=== PATIENT | male | born 1955 | race Caucasian/White ===

== ENCOUNTER 2018-04-21 16:45 | Observation (INO) | payer BC, OTHER ==
--- NOTE | 2018-04-21 17:25 | RAD ---
INDICATION: Chest pain. COMPARISON: There are no prior studies available for comparison. TECHNIQUE: A portable view of the chest was obtained. FINDINGS: Cardiac and mediastinal contours appear to be within normal limits. The lungs are underinflated and clear. No pleural effusion is seen. IMPRESSION: NO EVIDENCE FOR ACUTE DISEASE.
[2018-04-21] MEDS ORDERED: Aspirin 81 mg CHEW TAB* 81 MG TAB.CHEW PO ONE (17:30)
[2018-04-21] MEDS ORDERED: Nitroglycerin TAB 0.4 MG* 0.4 MG TAB SL ONE (17:30)
[2018-04-21 17:46] LABS: ABS Basophils 0.1 10^3/ul (0-0.2); ABS Eosinophils 0.1 10^3/ul (0-0.6); ABS Lymphocytes 1.5 10^3/ul (1.0-4.8); ABS Monocytes 0.5 10^3/ul (0-0.8); ABS Neutrophils 3.9 10^3/ul (1.5-7.7); ABS Nucleated RBC 0 10^3/ul; Eosinophil % 2.3 % (0-6); Hematocrit 46 % (42-52); Hemoglobin 16.1 g/dl (14.0-18.0); Lymphocyte % 25.2 % (25-47); Mean Corpuscular HGB Conc 35 g/dl (31-36); Mean Corpuscular Hemoglobin 30 pg (27-31); Mean Corpuscular Volume 86 fL (80-94); Nucleated Red Blood Cells % 0.1; Platelet Count 173 10^3/ul (150-450); Red Blood Count 5.31 10^6/ul (4.00-5.40); Red Cell Distribution Width 13 % (10.5-15); White Blood Count 6.1 10^3/ul (3.5-10.8)
[2018-04-21 18:04] LABS: EGFR Non-African American 67.6 (>60)
[2018-04-21] MEDS ORDERED: Nitroglycerin 2% OINT* 1 GM PAK TOPICAL ONE (19:15)
[2018-04-21] MEDS ORDERED: Ondansetron 40 MG VIAL* 2 MG/ML 20 ML VIAL IV PRN (20:10)
[2018-04-21] MEDS ORDERED: Albuterol 2.5 MG/3 ML NEB.SOL* (0.083%) INH PRN (20:29)
[2018-04-21] MEDS ORDERED: Metoprolol Tartrate TAB* 25 MG ONE (20:30)
[2018-04-21] MEDS: Metoprolol Tartrate TAB* 25 MG PO SCH ×2 (20:34→21:53)
[2018-04-21] MEDS: Heparin VIAL(*) 5000 UNITS/ML VIAL (FIVE THOUSAND) SUBCUT SCH (21:53)
[2018-04-21] MEDS: Nitroglycerin 2% OINT* 1 GM PAK TOPICAL SCH (22:36)
[2018-04-21] MEDS: Acetaminophen TAB* 325 MG PO PRN (22:41)
--- NOTE | 2018-04-21 22:50 | HP ---
CC: Dr. Westbrook * HISTORY AND PHYSICAL: DATE OF ADMISSION: 04/21/18 PRIMARY CARE PROVIDER: Dr. Westbrook. MY ATTENDING PHYSICIAN WHILE IN THE HOSPITAL: Dr. Neva Hardwick * (report dictated by Cj Finch NP) CHIEF COMPLAINT: Chest pain. HISTORY OF PRESENTING ILLNESS: Mr. Camarillo is a 62-year-old male patient; he carries a history of asthma and GERD. He comes into our emergency department today stating that the last couple of weeks he has had intermittent chest tightness, pressure, squeezing. He states it does not happen with exertion but he has noticed that he had been more short of breath with exertion, which he attributed to his allergy. 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 He states that frequency though and the intensity had been increasing over the last couple of days. Today, he had the discomfort and it was in the left chest, pressure going into the shoulder and down the arm and then to his neck. It happened around 10 o'clock and it got worse throughout the day. He says that it did not worse with exertion. He says it just got worse when his customers and his staff and coworkers were you know coming at him from all directions asking him about different things related to his business. He denies any recent fevers or chills. He denies having any associated nausea or diaphoresis with this. He says that he talked to one of his friends who happened to be a physician and they recommended him coming into the ER given his story. By the time he got to the ER, the discomfort had gone away. He is not having again any symptoms now. He says he is feeling better. He is feeling relaxed and he denied any recent travels or trips. No no recent med changes. No calf pain. No recent surgeries. No swelling in the legs. He was concerned though because of the discomfort just was not getting any better. Because of the concerning story, we were asked to evaluate for admission. PAST MEDICAL HISTORY: Significant for: 1. Asthma. 2. GERD. PAST SURGICAL HISTORY: He has had a vasectomy. HOME MEDICATIONS: Include: 1. Omeprazole 40 mg daily. 2. Singulair 10 mg daily. ALLERGIES TO MEDICATIONS: Include PENICILLIN. FAMILY HISTORY: His mother is alive at the age of 90. Father had a history of CHF, he in his 80s. SOCIAL HISTORY: He does not smoke. He does not drink. He again owns his own business. Surrogate decision maker is his . REVIEW OF SYSTEMS: There is no documented fever. He denies having any significant weight change. There was no double vision. He denies having any ear discharge. He denies having any rhinorrhea. There was no sore throat. No thyroid enlargement. He did admit to having chest pain per my HPI. Today, it was associated with shortness of breath, but he denies any orthopnea. No nocturnal dyspnea. There was no abdominal pain, no nausea, no vomiting. No dysuria, no frequency. No seizure, no loss of consciousness. No pruritus and no skin ulcerations. Review of 14 systems completed, all others were negative. PHYSICAL EXAMINATION GENERAL: At this time, Mr. Camarillo is a 62-year-old male patient; he appears to be well nourished and well developed. He is sitting in the ED stretcher. He does not appear to be in any acute distress. VITAL SIGNS: Blood pressure 127/94, pulse 85, respirations 13, O2 sat 98%, temperature 98.3. When he came in, his blood pressure was 155/98. HEENT: Head is atraumatic and normocephalic. Eyes: EOMs are intact. Sclerae are anicteric and not pale. Throat: Oral mucosa appears to be moist. No oropharyngeal erythema. NECK: Supple. LUNGS: Clear to auscultation bilaterally. There were no wheezes, rales, or rhonchi. HEART: Sounds S1, S2. Regular rate and rhythm. No murmurs, rubs, or gallops. ABDOMEN: Soft, it was flat, nontender. Bowel sounds were present. EXTREMITIES: Pulses were 2+ throughout. Able to move all 4 extremities with 5/ 5 strength. No peripheral edema. NEUROLOGICAL: The patient is awake, he is alert, and he is oriented x3. His tongue is midline. Acupressurist were equal. He had no gross focal deficits. SKIN: Intact. LABORATORY DATA/DIAGNOSTIC STUDIES: WBC of 6.1, RBC of 5.31, hemoglobin of 16.1, hematocrit of 46, and a platelet count of 173. Sodium 138, potassium was 3.9, chloride of 104, bicarb 24, BUN 23, creatinine 1.11, glucose 98, lactate 0.9, calcium 9.3, total bili 0.6. AST 18, ALT 28, alk phos 68. Troponin 0. Albumin 4.4. He did have a chest x-ray obtained today, which revealed no evidence for acute disease. Most recent EKG shows a normal sinus rhythm, rate of 70, had no ST elevations. There was inverted T-wave in lead 3, flat in aVF and flat in V1. The previous EKG that he had earlier today was similar. There was no acute changes that I could see. Again, chest x-ray, no evidence for acute disease. Old medical records were reviewed. ASSESSMENT AND PLAN: Mr. Camarillo is a 62-year-old male patient coming in today to the ER with complaint of chest discomfort, concerning for possible acute coronary syndrome. We were asked to evaluate for admission. He will be admitted under observation status for: 1. Chest pain. Again, the story is concerning, he has had progressive worsening pressure, tightness and now going into the jaw and neck. He has little risk factors for coronary artery syndrome, he has a concerning story and the fact that the symptoms are getting more severe make me want to pursue further testing. It could be associated with stress; however, I do think with this story and the fact that he has never experienced this before at work this severe, I think that he deserves a stress test. I also believe I am going to put him on nitro, beta-giovana, aspirin, trend the troponin, serial EKGs, lipid panel, A1c in the morning. If the EKGs change and the troponins go up, I will formally get Cardiology involved and start him on a heparin drip, but at this point we will continue to monitor him. He is chest pain free currently fortunately. We will get the stress tomorrow and place him on telemetry and continue to follow. 2. History of gastroesophageal reflux disease. Continue PPI therapy. 3. History of asthma. It is well controlled. I will order p.r.n. nebs and continue with Singulair. 4. DVT prophylaxis. Heparin subcu has been ordered. 5. Code status. Full code. 6. Fluids, electrolytes, nutrition. Heart healthy diet has been ordered, n.p.o. after midnight. TIME SPENT: On the admission was 60 minutes, greater than half time spent face- to- face with the patient obtaining my history and physical; other half time spent going over the plan of care with the patient and implementing the plan of care. I did discuss the plan of care with my attending physician, Dr. Hardwick; [place] [id number]/[facility] #: [id number] MARIO
[2018-04-22] MEDS ORDERED: Ibuprofen TAB* 600 MG PO ONE (01:04)
[2018-04-22] MEDS: Heparin VIAL(*) 5000 UNITS/ML VIAL (FIVE THOUSAND) SUBCUT SCH ×2 (05:39→13:30)
[2018-04-22 05:41] LABS: ABS Basophils 0 10^3/ul (0-0.2); ABS Eosinophils 0.1 10^3/ul (0-0.6); ABS Lymphocytes 1.6 10^3/ul (1.0-4.8); ABS Monocytes 0.5 10^3/ul (0-0.8); ABS Neutrophils 3.1 10^3/ul (1.5-7.7); ABS Nucleated RBC 0 10^3/ul; Eosinophil % 2.6 % (0-6); Hematocrit 43 % (42-52); Lymphocyte % 29.6 % (25-47); Mean Corpuscular HGB Conc 35 g/dl (31-36); Mean Corpuscular Hemoglobin 30 pg (27-31); Mean Corpuscular Volume 87 fL (80-94); Mean Platelet Volume 8.7 um3 (7.4-10.4); Nucleated Red Blood Cells % 0.1; Platelet Count 184 10^3/ul (150-450); Red Blood Count 5.01 10^6/ul (4.00-5.40); Red Cell Distribution Width 13 % (10.5-15); White Blood Count 5.3 10^3/ul (3.5-10.8)
[2018-04-22] MEDS: Acetaminophen TAB* 325 MG PO PRN (05:42)
[2018-04-22] MEDS: Nitroglycerin 2% OINT* 1 GM PAK TOPICAL SCH ×2 (07:59→12:59)
[2018-04-22] MEDS ORDERED: Aspirin 81 mg CHEW TAB* 81 MG TAB.CHEW PO SCH (09:00)
[2018-04-22] MEDS: Metoprolol Tartrate TAB* 25 MG PO SCH (10:10)
--- NOTE | 2018-04-22 10:35 | RAD ---
INDICATION: Chest pain COMPARISON: None TECHNIQUE: A single day SPECT protocol was utilized. Rest images were acquired following the intravenous injection of 10.9 millicuries of technetium 99m tetrofosmin. Exercise stress images were acquired following the intravenous administration of 25.3 millicuries of technetium 99m tetrofosmin. The patient was exercised to a peak heart rate of 144 which is 90 of age predicted maximum. FINDINGS: There are no defects of the stress-induced or fixed nature. The cardiac chamber size is normal. There are no wall motion abnormalities. The ejection fraction is calculated at 70 percent during stress. IMPRESSION: NO DEFECTS OR STRESS-INDUCED OR FIXED NATURE. ASSESSMENT: LOW-RISK Based on imaging criteria from ACC/AHA 2002 Guideline Update for the Management of Patients With Chronic Stable Angina Table 23. Noninvasive Risk Stratification. Reference.
[2018-04-22 11:21] VITALS: BP 118/83
[2018-04-22] MEDS ORDERED: Nitro Patch/OINT Remove TOPICAL SCH (14:00)
[2018-04-22] MEDS ORDERED: Montelukast Sodium TAB* 10 MG PO SCH (18:00)
[2018-04-22] MEDS ORDERED: Omeprazole CAP* 20 MG PO SCH (18:00)
[2018-04-22] MEDS ORDERED: Nitroglycerin 2% OINT* 1 GM PAK TOPICAL SCH (20:11)
--- NOTE | 2018-04-23 10:16 | DS ---
CC: Dr. Ashish Westbrook; Dr. Enmanuel Sewell * DISCHARGE SUMMARY: DATE OF ADMISSION: 04/21/18 DATE OF DISCHARGE: 04/22/18 ATTENDING PROVIDER: Mallorie Watson MD * (DICTATED BY CELI LINO NP ) HISTORY OF PRESENT ILLNESS: This is a very pleasant 62-year-old male patient who presented with complaints of chest tightness, pressure, and squeezing sensation. The patient states he has noticed that he has been short of breath with exertion and also he has had some allergy like symptoms. He noticed also that these symptoms were exacerbated when he was under stress at work and then the sensation began to radiate up into his neck. The patient, at that point, came to the emergency department for evaluation. The patient had negative troponins and was scheduled for stress test. Stress test was low risk. The patient was counseled extensively on his history of asthma. The patient states that he only takes Singulair for his asthma and was not using a rescue inhaler and was not evaluated recently for asthma staging. The patient stated that looking back on his symptoms, he felt that his shortness of breath actually was precipitated by allergy reactions, exercise, and also allergies. The patient was seen by Dr. Deloris Powell from Cardiology who had read his stress test today. Please see her note regarding recommendations. The patient stated his pain was completely resolved by the time his stress test was performed and was ready to go home with outpatient followup. DISCHARGE DIAGNOSES: 1. Chest pain, atypical. 2. Asthma, uncontrolled. 3. History of GERD. DISCHARGE MEDICATIONS: Include: 1. Albuterol rescue inhaler 1 puff q.4 hours as needed. 2. Omeprazole 40 mg daily. 3. Singulair 10 mg daily. REVIEW OF SYSTEMS: On the day of discharge, review of systems is negative except as noted above. PHYSICAL EXAMINATION: Vital Signs: Blood pressure 118/83, heart rate 69, respiratory rate 12, satting at 98% on room air, temperature 97.7. LABORATORY DATA: WBCs 5.3, RBCs 5.01, hemoglobin 15, hematocrit 43. Sodium 138 , potassium 3.9, chloride 105, CO2 24, BUN 22. GFR 67.6. Lactic acid 0.9, hemoglobin A1c 5.5, triglycerides 111, cholesterol 162, LDL 109, HDL 30.9. Liver function within normal limits. Troponin was negative x3 at 0.00. DISPOSITION: The patient is discharged to home in stable condition. He was told to follow up with Dr. Enmanuel Sewell, his quality assurance project manager also Dr. Ashish Westbrook, his primary care provider and it was also noted to the patient to obtain an appointment with Dr. Nikole Caban from Pulmonology, he can take this referral from his primary care provider and have pulmonary function testing done and advise future planning for his asthma if he is not able to have this well controlled as an outpatient. The patient was discharged in stable condition. All questions were answered. The patient stated his understanding of his discharge medications and follow up. CELI LINO NP [id number]/[facility] #: [id number] MARIO
== END 2018-04-22 14:54 | disposition home or self-care (01) ==
LOC: ED 16:45 → MEDTELE 20:05
PROVIDERS: ADMIT Pediatrics; ATTEND Internal Medicine
DX: R07.89 Other chest pain (principal); J45.909 Unspecified asthma, uncomplicated; Z87.19 Personal history of other diseases of the digestive system; Z88.0 Allergy status to penicillin
CPT/HCPCS: 36415; 71045; 78452; 80053; 80061; 83036; 83605; 84484; 85025; 93005; 93017; 99284; A9270-GY; A9502; J1644

== ENCOUNTER 2019-06-01 09:27 | Emergency (ER) | payer SELFPAY ==
--- NOTE | 2019-06-01 10:25 | UC ---
Abdominal Pain Male HPI - HPI Summary HPI Summary: 64-year-old male comes in with a chief complaint of suprapubic pain and bilateral flank pain. Started about 5 days ago. Patient has a history of BPH and he always has difficulty initiating urine. This is been worsening over the last several months. The past he's been on tamsulosin which she restarted several months ago which has helped some with his symptoms. However overall things got worse in the last 5 days he's developed suprapubic and bilateral flank pain. Pain is not made worse by twisting turning or bending. Denies any anterior epigastric pain. He was slightly constipated he took an over-the- counter remedy which did help him evacuate his bowels but it did not help with the pain. No fevers or chills. No burning with urination. He has seen urology in the past for his BPH. - History of Current Complaint Chief Complaint: UCGU Stated Complaint: ABD/BACK PAIN Time Seen by Provider: 06/01/19 09:51 Pain Intensity: 4 - Allergies/Home Medications Allergies/Adverse Reactions: Allergies Allergy/AdvReac Type Severity Reaction Status Date / Time ampicillin Allergy Anaphylatic Verified 06/01/19 09:41 Shock Penicillins Allergy Anaphylatic Verified 06/01/19 09:41 Shock Home Medications: Home Medications Tamsulosin CAP* [Flomax CAP*] 0.4 mg PO BEDTIME 06/01/19 [History Confirmed ] PMH/Surg Hx/FS Hx/Imm Hx Previously Healthy: Yes - BPH - Surgical History Surgical History: None - Family History Known Family History: Positive: Hypertension, Other - CHF - Social History Alcohol Use: None Substance Use Type: None Smoking Status (MU): Never Smoked Tobacco Have You Smoked in the Last Year: No Review of Systems All Other Systems Reviewed And Are Negative: Yes Constitutional: Positive: Negative Skin: Positive: Negative Eyes: Positive: Negative ENT: Positive: Negative Respiratory: Positive: Negative Cardiovascular: Positive: Negative Gastrointestinal: Positive: Abdominal Pain Genitourinary: Positive: Other - SEE HPI Motor: Positive: Negative Neurovascular: Positive: Negative Musculoskeletal: Positive: Negative Neurological: Positive: Negative Psychological: Positive: Negative Is Patient Immunocompromised?: No Physical Exam Triage Information Reviewed: Yes Appearance: Well-Appearing, No Pain Distress, Well-Nourished Vital Signs: Initial Vital Signs Temp 97.9 F 06/01/19 09:36 Pulse 77 06/01/19 09:36 Resp 20 06/01/19 09:36 BP 161/90 06/01/19 09:36 Pulse Ox 99 06/01/19 09:36 Vital Signs Reviewed: Yes Eye Exam: Normal Eyes: Positive: Conjunctiva Clear Neck: Positive: Supple Respiratory: Positive: Lungs clear, Normal breath sounds, No respiratory distress Cardiovascular: Positive: RRR Abdomen Description: Positive: CVA Tenderness (R), CVA Tenderness (L), Other: - SUPRAPUBIC TENDERNESS TO PALPATION Bowel Sounds: Positive: Present Musculoskeletal Exam: Normal Musculoskeletal: Positive: Strength Intact, ROM Intact Neurological Exam: Normal Neurological: Positive: Alert, Muscle Tone Normal Psychological Exam: Normal Psychological: Positive: Normal Response To Family, Age Appropriate Behavior Skin Exam: Normal Abd Pain Male Course/Dx - Course Course Of Treatment: Patient Name: GENIE ROSARIO Medical Record#: [id number] Ordering Physician: Solomon Jc MD Acct.#: [id number] : 1955 Age: 64 Sex: M Location: [facility] Exam Date: 06/01/19 1001 ADM Status: REG ER Order Information: US RENAL AND BLADDER Accession Number: [id number] CPT: 09949 INDICATION: Suprapubic and bilateral flank pain COMPARISON: April 13, 2013 bladder ultrasound TECHNIQUE: Multiple real-time images of the kidneys and urinary bladder were obtained. FINDINGS: The kidneys are normal in size shape and echogenicity. The right kidney measured 10.6 cm and the left kidney measured 11.9 cm. No significant focal renal abnormality or hydronephrosis is seen. The prevoid bladder was mostly collapsed. The ureteral jets streams could not be imaged. No internal debris was identified. The the urinary bladder wall is within normal limits. The prostate gland measured 3.9 x 4.1 x 5.2 cm cm for a total volume of 44 ml. The prevoid volume was 56 ml and a post void residual was 12 ml. IMPRESSION: 1. NO HYDRONEPHROSIS. 2. NO SIGNIFICANT POSTVOID RESIDUAL. EVALUATION OF THE URINARY BLADDER WAS LIMITED BY POOR PREVOID DISTENTION. THE URETERAL JETS COULD NOT BE IMAGED. 3. THE PROSTATE IS ENLARGED TO 5.2 CM. <Electronically signed by Sabas Sexton MD in OV> 06/01/19 1120 I discussed the ultrasound report with the patient and his . There is not excessive postvoid residual there is no hydronephrosis. At this time I do not have a cause for the flank pain and suprapubic pain. I recommended further evaluation in the emergency department. He's going with his by POV. - Differential Dx/Clinical Impression Provider Diagnosis: Abdominal pain, Flank pain, Enlarged prostate Discharge - Sign-Out/Discharge Documenting (check all that apply): Patient Departure All imaging exams completed and their final reports reviewed: Yes - Discharge Plan Condition: Stable Disposition: HOME-RECOMMEND TO ED Patient Education Materials: Enlarged Prostate (BPH) (ED), Acute Abdominal Pain (ED), Flank Pain (ED) Referrals: Ashish Westbrook MD [Primary Care Provider] - Additional Instructions: GO DIRECTLY TO THE EMERGENCY DEPARTMENT FOR FURTHER EVALUATION OF YOUR ABDOMINAL AND FLANK PAIN. - Billing Disposition and Condition Condition: STABLE Disposition: Home-Recommend to ED
[2019-06-01 11:41] VITALS: BP 136/90
== END 2019-06-01 11:57 | disposition home health service (06) ==
LOC: UCEAST 09:27
DX: R10.9 Unspecified abdominal pain (principal); N40.0 Benign prostatic hyperplasia without lower urinary tract symptoms; Z88.0 Allergy status to penicillin
CPT/HCPCS: 76770; 81002; 99212; G0463

== ENCOUNTER 2019-06-01 12:22 | Emergency (ER) | payer SELFPAY ==
[2019-06-01 14:17] LABS: ABS Eosinophils 0.1 10^3/ul (0-0.6); ABS Lymphocytes 1.3 10^3/ul (1.0-4.8); ABS Monocytes 0.5 10^3/ul (0-0.8); ABS Neutrophils 3.8 10^3/ul (1.5-7.7); Eosinophil % 1.8 %; Hematocrit 48 % (42-52); Hemoglobin 16.4 g/dL (14.0-18.0); Lymphocyte % 22.3 %; Mean Corpuscular HGB Conc 35 g/dL (31-36); Mean Corpuscular Hemoglobin 30 pg (27-31); Mean Corpuscular Volume 87 fL (80-94); Mean Platelet Volume 8.1 fL (7.4-10.4); Nucleated Red Blood Cells % 0.2; Platelet Count 200 10^3/uL (150-450); Red Blood Count 5.47 10^6 /uL (4.18-5.48); Red Cell Distribution Width 13 % (10-15); White Blood Count 5.6 10^3/uL (3.5-10.8)
[2019-06-01 14:24] LABS: INR 1.05 (0.82-1.09)
[2019-06-01 14:28] LABS: Albumin 4.8 g/dL (3.2-5.2); Albumin/Globulin Ratio 1.8 (1-3); BUN/Creatinine Ratio 14.3 (8-20); CRP High Sensitivity 1.84 mg/L (<2.00); Calcium 9.7 mg/dL (8.6-10.3); EGFR African American 86.6 (>60); EGFR Non-African American 71.6 (>60); Globulin 2.7 g/dL (2-4); Potassium 4.2 mmol/L (3.5-5.0); Total Bilirubin 0.8 mg/dL (0.2-1.0); Total Protein 7.5 g/dL (6.4-8.9)
--- NOTE | 2019-06-01 14:57 | ED ---
Back Pain - HPI Summary HPI Summary: Pt is a 64 y/o M presenting to the ED with a chief complaint of bilateral flank pain onset a couple of days ago. The pain was originally in the bladder, but it spread up into his L-sided back and ribs. He states he has had frequent urination, and it has been difficult to urinate. He reports chronic frequency secondary to BPH. He denies hematuria, fever, vomiting, diarrhea, or hx of kidney stones. Sx aggravated by walking. Has tried Motrin at home with some effect. Patient also by his constipated and took a laxative and had bowel movement this morning. Patient went to urgent care where he had an ultrasound of his bladder and kidneys, but did not show any evidence of hydronephrosis his postvoid residual less than 20 cc. - History of Current Complaint Chief Complaint: EDFlankPain Stated Complaint: ABD AND BACK PAIN PER PT Time Seen by Provider: 06/01/19 14:29 Hx Obtained From: Patient Onset/Duration: Gradual Onset, Lasting Days, Still Present Onset/Duration: Started Days Ago, Still Present Timing: Constant, Lasting Days Back Pain Location: Is Discrete @ - L-sided back Severity Initially: Mild Severity Currently: Mild Pain Intensity: 0 Pain Scale Used: 0-10 Numeric Character: Aching Aggravating Symptom(s): Walking Alleviating Symptom(s): Nothing Associated Signs And Symptoms: Positive: Flank Pain. Negative: Fever - Allergies/Home Medications Allergies/Adverse Reactions: Allergies Allergy/AdvReac Type Severity Reaction Status Date / Time ampicillin Allergy Anaphylatic Verified 06/01/19 15:07 Shock Penicillins Allergy Anaphylatic Verified 06/01/19 15:07 Shock PMH/Surg Hx/FS Hx/Imm Hx Previously Healthy: Yes Endocrine/Hematology History: Denies: Hx Diabetes Cardiovascular History: Reports: Hx Angina Denies: Hx Coronary Artery Disease, Hx Hypercholesterolemia, Hx Hypertension , Hx Myocardial Infarction, Hx Valvular Heart Disease Respiratory History: Reports: Hx Asthma, Hx Chronic Bronchitis GI History: Reports: Hx Gastroesophageal Reflux Disease History: Reports: Other Problems/Disorders - enlarged prostate Denies: Hx Kidney Stones Musculoskeletal History: Denies: Hx Scoliosis Sensory History: Reports: Hx Contacts or Glasses Denies: Hx Legally Blind, Hx Deafness, Hx Hearing Aid Opthamlomology History: Reports: Hx Contacts or Glasses Denies: Hx Legally Blind Neurological History: Denies: Other Neuro Impairments/Disorders Infectious Disease History: No Infectious Disease History: Denies: Traveled Outside the [place] in Last 30 Days - Family History Known Family History: Positive: Hypertension, Other - CHF - Social History Alcohol Use: None Hx Substance Use: No Substance Use Type: Reports: None Hx Tobacco Use: No Smoking Status (MU): Never Smoked Tobacco Have You Smoked in the Last Year: No Review of Systems Negative: Fever Negative: Vomiting, Diarrhea Positive: frequency, flank pain, other - difficulty pushing out urine. Negative : hematuria All Other Systems Reviewed And Are Negative: Yes Physical Exam - Summary Physical Exam Summary: Constitutional: Well-developed, Well-nourished, Alert. (-) Distressed Skin: Warm, Dry HENT: Normocephalic; Atraumatic Eyes: Conjunctiva normal Neck: Musculoskeletal ROM normal neck. (-) JVD, (-) Stridor Cardio: Rhythm regular, rate normal, Heart sounds normal; Intact distal pulses; Radial pulses are 2+ and symmetric. (-) Murmur Pulmonary/Chest wall: Effort normal. (-) Respiratory distress, (-) Wheezes, (-) Rales Abd: Soft, mild bilateral flank and suprapubic tenderness present, (-) Distension, (-) Guarding, (-) Rebound Musculoskeletal: (-) Edema Lymph: (-) Cervical adenopathy Neuro: Alert, Oriented x3 Psych: Mood and affect Normal Triage Information Reviewed: Yes Vital Signs On Initial Exam: Initial Vitals Temp Pulse Resp BP Pulse Ox 98.0 F 71 18 150/106 98 06/01/19 12:26 06/01/19 12:26 06/01/19 12:26 06/01/19 12:26 06/01/19 12:26 Vital Signs Reviewed: Yes Diagnostics - Vital Signs Vital Signs Temp Pulse Resp BP Pulse Ox 06/01/19 14:25 97.7 F 77 18 125/88 99 06/01/19 12:26 98.0 F 71 18 150/106 98 - Laboratory Lab Results: Lab Results 06/01/19 06/01/19 06/01/19 Range/Units 13:46 13:46 13:46 WBC 5.6 (3.5-10.8) 10^3/uL RBC 5.47 (4.18-5.48) 10^6 /uL Hgb 16.4 (14.0-18.0) g/dL Hct 48 (42-52) % MCV 87 (80-94) fL MCH 30 (27-31) pg MCHC 35 (31-36) g/dL RDW 13 (10-15) % Plt Count 200 (150-450) 10^3/uL MPV 8.1 (7.4-10.4) fL Neut % (Auto) 66.8 % Lymph % (Auto) 22.3 % [place] % (Auto) 8.7 % Eos % (Auto) 1.8 % Baso % (Auto) 0.4 % Absolute Neuts (auto) 3.8 (1.5-7.7) 10^3/ul Absolute Lymphs (auto) 1.3 (1.0-4.8) 10^3/ul Absolute Monos (auto) 0.5 (0-0.8) 10^3/ul Absolute Eos (auto) 0.1 (0-0.6) 10^3/ul Absolute Basos (auto) 0.0 (0-0.2) 10^3/ul Absolute Nucleated RBC 0.0 10^3/ul Nucleated RBC % 0.2 INR (Anticoag Therapy) 1.05 (0.82-1.09) APTT 40.0 H (26.0-38.0) seconds Sodium 137 (135-145) mmol/L Potassium 4.2 (3.5-5.0) mmol/L Chloride 105 (101-111) mmol/L Carbon Dioxide 25 (22-32) mmol/L Anion Gap 7 (2-11) mmol/L BUN 15 (6-24) mg/dL Creatinine 1.05 (0.67-1.17) mg/dL Est GFR ( Amer) 86.6 (>60) Est GFR (Non-Af Amer) 71.6 (>60) BUN/Creatinine Ratio 14.3 (8-20) Glucose 100 (70-100) mg/dL Lactic Acid (0.5-2.0) mmol/L Calcium 9.7 (8.6-10.3) mg/dL Total Bilirubin 0.80 (0.2-1.0) mg/dL AST 17 (13-39) U/L ALT 24 (7-52) U/L Alkaline Phosphatase 77 (34-104) U/L C-React Prot High Sens 1.84 (<2.00) mg/L Total Protein 7.5 (6.4-8.9) g/dL Albumin 4.8 (3.2-5.2) g/dL Globulin 2.7 (2-4) g/dL Albumin/Globulin Ratio 1.8 (1-3) Lipase 50 (11.0-82.0) U/L 06/01/19 Range/Units 13:46 WBC (3.5-10.8) 10^3/uL RBC (4.18-5.48) 10^6 /uL Hgb (14.0-18.0) g/dL Hct (42-52) % MCV (80-94) fL MCH (27-31) pg MCHC (31-36) g/dL RDW (10-15) % Plt Count (150-450) 10^3/uL MPV (7.4-10.4) fL Neut % (Auto) % Lymph % (Auto) % [place] % (Auto) % Eos % (Auto) % Baso % (Auto) % Absolute Neuts (auto) (1.5-7.7) 10^3/ul Absolute Lymphs (auto) (1.0-4.8) 10^3/ul Absolute Monos (auto) (0-0.8) 10^3/ul Absolute Eos (auto) (0-0.6) 10^3/ul Absolute Basos (auto) (0-0.2) 10^3/ul Absolute Nucleated RBC 10^3/ul Nucleated RBC % INR (Anticoag Therapy) (0.82-1.09) APTT (26.0-38.0) seconds Sodium (135-145) mmol/L Potassium (3.5-5.0) mmol/L Chloride (101-111) mmol/L Carbon Dioxide (22-32) mmol/L Anion Gap (2-11) mmol/L BUN (6-24) mg/dL Creatinine (0.67-1.17) mg/dL Est GFR ( Amer) (>60) Est GFR (Non-Af Amer) (>60) BUN/Creatinine Ratio (8-20) Glucose (70-100) mg/dL Lactic Acid 0.8 (0.5-2.0) mmol/L Calcium (8.6-10.3) mg/dL Total Bilirubin (0.2-1.0) mg/dL AST (13-39) U/L ALT (7-52) U/L Alkaline Phosphatase (34-104) U/L C-React Prot High Sens (<2.00) mg/L Total Protein (6.4-8.9) g/dL Albumin (3.2-5.2) g/dL Globulin (2-4) g/dL Albumin/Globulin Ratio (1-3) Lipase (11.0-82.0) U/L Result Diagrams: 06/01/19 13:46 06/01/19 13:46 Lab Statement: Any lab studies that have been ordered have been reviewed, and results considered in the medical decision making process. Re-Evaluation - Re-Evaluation 1st re-eval Re-Evaluation Time: 15:33 Change: Improved Comment: Urine without significant infection. Instructed pt to come back to the ED with worsening or continuing pain. Back Pain Course/Dx - Course Course Of Treatment: 64-year-old male with a history of BPH on Flomax presents with bilateral flank pain and suprapubic pain. Patient initially presented to urgent care where ultrasound done did not show any evidence of hydronephrosis. Most likely diagnosis is musculoskeletal pain. Other considerations include: UTI/pyelo- no dysuria, no hematuria, UA without evidence of infection. Normal creatinine. Kidney stone - no blood in the urine, patient now describes typical features of kidney stone pain, no history of stents in the past, no hydronephrosis on ultrasound, low suspicion. Appendicitis - no RLQ tenderness, no white count or fevers, low suspicion. Gall bladder pathology - no RUQ TTP, no history of gallstones, LFT and bili wnl, low suspicion. Pneumonia - no cough , or upper respiratory symptoms to suggest pneumonia. Discussed with patient risks of radiation with CT scan given that he has normal labs, no white count, normal creatinine, and urine without evidence of infection. Patient agreeable to return to the ED for worsening symptoms at which time he has continued pain would consider checking a CT scan. - Diagnoses Provider Diagnoses: Flank pain, Suprapubic pain Discharge - Sign-Out/Discharge Documenting (check all that apply): Patient Departure Patient Received Moderate/Deep Sedation with Procedure: No - Discharge Plan Condition: Stable Disposition: HOME Patient Education Materials: Flank Pain (ED) Referrals: Ashish Westbrook MD [Primary Care Provider] - Additional Instructions: Please follow up with your primary care provider. Your labs did not show any evidence of infection, your kidney function is normal. Your ultrasound did not show any evidence of hydronephrosis (swelling of the kidneys). Return to the emergency department with any new or worsening symptoms. - Billing Disposition and Condition Condition: STABLE Disposition: Home - Attestation Statements Document Initiated by Malickibzacarias: Yes Documenting Scribe: Neva Pizano Provider For Whom Winston is Documenting (Include Credential): Maryann Sarabia MD. Scribe Attestation: Neva Paige, ascencioned for Maryann Sarabia MD. on 06/01/19 at 1542. Scribe Documentation Reviewed: Yes Provider Attestation: The documentation as recorded by the malickibeNeva accurately reflects the service I personally performed and the decisions made by Maryann leija MD. Status of Scribe Document: Viewed
[2019-06-01 15:30] LABS: Urine Appearance Cloudy; Urine Bilirubin Negative (Negative); Urine Blood Negative (Negative); Urine Color Yellow; Urine Glucose Negative (Negative); Urine Ketones Trace (Negative); Urine Nitrite Negative (Negative); Urine Protein Negative (Negative); Urine Specific Gravity 1.016 (1.010-1.030); Urine Urobilinogen Negative (Negative)
[2019-06-01 16:28] VITALS: BP 132/82
== END 2019-06-01 16:27 | disposition home or self-care (01) ==
LOC: ED 12:22
DX: R10.32 Left lower quadrant pain (principal); R10.31 Right lower quadrant pain; N40.1 Benign prostatic hyperplasia with lower urinary tract symptoms; R35.0 Frequency of micturition; Z88.0 Allergy status to penicillin
CPT/HCPCS: 36415; 80053; 81003; 83605; 83690; 84153; 85025; 85610; 85730; 86141; 99283; G0103